=== PATIENT | male | born 1975 | race Caucasian/White ===

== ENCOUNTER 2020-04-04 08:34 | Outpatient (CLI) | payer BC ==
[~2020-04-04] VITALS: Ht 177.8 cm; Wt 87.2 kg
--- NOTE | ~2020-04-04 | HEMODYNAMI ---
PATIENT:RO RASMUSSEN MEDICAL RECORD: [id number] : 77 LOCATION:[facility] ADMISSION DATE: 04/04/20 Generatedon:04/04/202011:25 Patient name: RO RASMUSSEN Patient #: [id number] SSN: : [id number] Date of study: 04/04/2020 Page: Of Hemodynamic Procedure Report Patient Data Patient Demographics Procedure consent was obtained First Name: RO Gender: Male Last Name: GRADY : 1975 Patient #: [id number] Age: 44 year(s) Race: Unknown Additional ID: [id number] Contact details [address]: [address] [place] [address] State: [place] City: [place] Zip code: [address] Past Medical History Performed procedures and imaging results Date Procedure Procedure Results Comments Echocardiography Allergies: No known allergies Admission Admission Data Admission Date: 04/04/2020 Admission Time: 8:34 Arrival Date: 04/04/2020 Arrival Time: 0:00 Height (in.): 70 BSA: 2.05 (m2) Height (cm.): 177.8 BMI: 27.52 (kg/m2) Weight (lbs.): 191.8 Weight (kg.): 87 Lab Results Lab Result Date: 04/04/2020 Lab Result Time: 0:00 Biochemistry Name Units Result Min Max BUN mg/dl 20 --(----)*- 7 18 Creatinine mg/dl 1.5 --(----)-* 0.6 1.3 eGFR ml/min 66 *-(----)-- 90 120 NONAFRICAN CBC Name Units Result Min Max Hematocrit % 45.4 --(-*--)-- 42 54 Hemoglobin g/dl 15.6 --(--*-)-- 13.5 17.5 Procedure Procedure Types Cath Procedure Diagnostic Procedure [facility] w/Coronaries FFR/IVUS FFR Initial Aortic Root Angiography Sedation Charges Moderate Sedation up to 45 minutes PCI Procedure Coronary Stent Coronary Stent Initial Hemochron ACT Test Procedure Description Procedure Date Procedure Date: 04/04/2020 Procedure Start Time: 10:41 Procedure End Time: 11:23 Procedure Staff Name Function Otoniel Green MD Performing Physician Marlena Barbosa RT Monitor Marilynn Garcia RN Nurse Julia De La Cruz RT Scrub Indication Cardiomyopathy Procedure Data Cath Procedure Fluoroscopy Diagnostic fluoroscopy Total fluoroscopy Time: time: 10.6 min 10.6 min Diagnostic fluoroscopy Total fluoroscopy dose: dose: 1285 mGy 1285 mGy Contrast Material Contrast Material Type Amount (ml) Isovue 300 185 Entry Location Entry Primary Successful Side Size Upsize Upsize Entry Closure Succes sful Closure Location (Fr) 1 (Fr) 2 (Fr) Remarks Device Remarks Femoral Right 5 Fr 6 Fr Exoseal artery Short Estimated blood loss: 10 ml Diagnostic catheters Device Type Used For End Catheter Placement MULTIPACK JL 4.0 5Fr Procedure catheter MULTIPACK 3DRC 5Fr Procedure catheter DIAGNOSTIC AR MOD 5Fr Procedure Catheter ([id number]) DIAGNOSTIC AL1 5Fr Procedure catheter ([id number]) MULTIPACK Pigtail 5 Fr Ventriculography catheter MULTIPACK Pigtail 5 Fr Procedure catheter Procedure Complications No complications Procedure Medications Medication Administration Route Dosage 0.9% NaCl I.V. 100 ml/hr Oxygen etCO2 Nasal cannula 2 l/min Lidocaine 2% added to field 20 Heparin Flush Bag added to field 2 bags (1000units/500ml NS) Versed I.V. 2 mg Fentanyl I.V. 50 mcg Versed I.V. 2 mg Fentanyl I.V. 50 mcg Heparin Bolus I.V. 2000 units Heparin Bolus I.V. 6500 units Nitroglycerin IC/IA I.C. 100 mcg Plavix P.O. 600 mg Hemodynamics Rest BSA: 2.05 (m2) HGB: 15.6 (g/dl) O2 Consumption: Estimated: 240.67 (ml/min) O2 Co nsumption indexed: Estimated:117.4 (ml/min/m) Heart Rate: 60 (bpm) Pressure Samples Time Site Value (mmHg) Purpose Heart Use Rate(bpm) 10:55 LV 131/-5,6 Snapshot 61 10:55 LV 123/-5,0 Snapshot 65 Gradients Valve Time Site Site Mean SEP/DFP Peak To Heart Use 1 2 (mmHg) (sec/min) Peak Rate (mmHg) (bpm) Aortic 10:55 LV AO 62 Snapshots Pre Cath Intra NCS Post Cath Vital Signs Time Heart Resp SPO2 etCO2 NIBP (mmHg) Rhythm Pain Sedation Rate (ipm) (%) (mmHg) Status Level (bpm) 10:16:52 60 16 100 32.9 173/102(134) NSR 0 (11) 10(A) , No pain 10:21:14 60 13 99 35.1 167/103(142) NSR 0 (11) 10(A) , No pain 10:25:34 61 12 97 40.4 158/94(115) NSR 0 (11) 10(A) , No pain 10:29:58 59 13 97 39.6 149/88(109) SB 0 (11) 10(A) , No pain 10:34:14 61 12 97 41.9 146/89(118) NSR 0 (11) 10(A) , No pain 10:38:28 58 11 97 41.9 143/91(110) SB 0 (11) 10(A) , No pain 10:43:27 55 11 97 40.4 Measuring SB 0 (11) 10(A) , No pain 10:43:33 54 11 97 41.1 148/87(105) SB 0 (11) 10(A) , No pain 10:47:52 61 11 97 41.9 149/88(121) SB 0 (11) 9(A) , No pain 10:52:14 58 11 96 41.8 144/81(115) SB 0 (11) 9(A) , No pain 10:56:32 61 11 98 41.1 148/87(114) SB 0 (11) 9(A) , No pain 11:01:31 57 11 96 41.1 Measuring SB 0 (11) 9(A) , No pain 11:01:41 58 11 98 41.1 145/80(114) SB 0 (11) 9(A) , No pain 11:05:59 56 13 98 41.1 153/87(113) SB 0 (11) 9(A) , No pain 11:10:19 54 13 99 41.1 139/68(113) SB 0 (11) 9(A) , No pain 11:14:44 58 13 98 41.1 152/70(103) SB 0 (11) 9(A) , No pain 11:19:04 51 13 99 40.4 152/92(109) SB 0 (11) 9(A) , No pain 11:23:24 51 11 97 38.1 145/86(117) SB 0 (11) 10(A) , No pain Medications Time Medication Route Dose Verified Delivered Reason Notes Effectiveness by by 10:21:56 0.9% NaCl I.V. 100 Otoniel Marilynn used for ml/hr Peter Garcia drug purchaser 10:22:03 Oxygen etCO2 2 Otoniel Marilynn used for Nasal l/min Peetr Garcia procedure cannula RN 10:22:08 Lidocaine 2% added 20ml Otoniel Otoniel for local to vial Peter Green MD anesthetic field 10:22:14 Heparin Flush added 2 Otoniel Otoniel used for Bag to bags Peter Green MD procedure (1000units/500ml field NS) 10:38:20 Versed I.V. 2 mg Otoniel Marilynn for sedation Peter Garcia RN 10:38:29 Fentanyl I.V. 50 Otoniel Marilynn for sedation mcg Peter Garcia RN 10:43:06 Versed I.V. 2 mg Otoniel Marilynn for sedation Peter Garcia RN 10:43:15 Fentanyl I.V. 50 Otoniel Marilynn for sedation mcg Peter Garcia RN 10:58:07 Heparin Bolus I.V. 2000 Otoniel Marilynn for verif ied units Peter Garcia anticoagulation with Dr. WU Green 11:11:52 Heparin Bolus I.V. 6500 Otoniel Marilynn for units Peter Garcia anticoagulation RN 11:18:48 Nitroglycerin I.C. 100 Otoniel Otoniel for IC/IA mcg Peter Green MD vasodilation 11:21:41 Plavix P.O. 600 Otoniel Marilynn for mg Peter Garcia antiplatelet RN therapy Procedure Log Time Note 10:05:57 Indication : Cardiomyopathy 10:06:05 Marilynn Garcia RN sent for patient. Start room use. 10:06:08 Time tracking: Regular hours (M-F 7:00 - 5:00) 10:06:13 Procedure Status Elective Heart Cath (OP). 10:06:22 Plan of Care:Hemodynamics will remain stable., Cardiac rhythm will remain stable., Comfort level will be maintained., Respiratory function will remain adequate., Patient/ family verbilizes understanding of procedure., Procedure tolerated without complication., Recovers from procedure without complications.. 10:10:12 Patient received from Pre/Post Procedure Room to CCL 1 Alert and oriented. Tansferred to table in Supine position. 10:10:14 Signed procedure consent form obtained from patient. 10:10:15 Warm blankets applied, and gayle hugger turned on for patient comfort. 10:10:16 Correct patient and procedure confirmed by team. 10:10:25 H&P Date Dictated: 04/04/2020 New H&P dictated by physician.. 10:10:27 Family in patients room. 10:10:28 Patient NPO since Midnight. 10:11:17 Lab Result : Creatinine 1.5 mg/dl 10:11:17 Lab Result : BUN 20 mg/dl 10:11:17 Lab Result : Hemoglobin 15.6 g/dl 10:11:17 Lab Result : eGFR NONAFRICAN 66 ml/min 10:11:17 Lab Result : Hematocrit 45.4 % 10:15:29 ECG and BP/O2 sat monitors applied to patient. 10:15:30 Vital chart was started 10:15:32 Baseline sample Acquired. 10:15:37 Rhythm: sinus bradycardia 10:15:39 Full Disclosure recording started 10:15:45 Pre-procedure instructions explained to patient. 10:15:46 Pre-op teaching completed and patient verbalized understanding. 10:15:51 Patient allergic to No known allergies 10:15:55 Is patient on blood thinner?No 10:15:59 Patient diabetic? No. 10:16:02 Previous problem with sedation/anesthesia? No ? 10:16:03 Snore? Yes 10:16:04 Sleep apnea? No 10:16:05 Deviated septum? No 10:16:06 Opens mouth fully? Yes 10:16:07 Sticks out tongue? Yes 10:16:09 Airway obstruction? No ? 10:16:10 Dentures? No ? 10:16:15 Pre procedure: right dorsailis pedis pulse 1+ Palpable, but thready & weak; easily obliterated 10:16:19 Modified Sandro's test Ulnar > 7 seconds. 10:16:21 Patient pain scale 0/10 ?. 10:16:29 IV patent on arrival in left hand with 0.9% NaCl at [facility]. 10:16:34 Lab results completed and on chart. 10:16:49 Stress Test: no; N/A ECHO-CARDIOMYOPATHY 10:17:00 Right groin area was prepped with chlora-prep and draped in sterile fashion 10:17:01 Alarms reviewed by R. N. 10:17:01 Sharps counted by scrub and verified by R.N. 10:17:10 Use device set Femoral Dx 10:17:11 ACIST Syringe (21787) opened to sterile field. 10:17:11 Bag Decanter (2002S) opened to sterile field. 10:17:12 ACIST Hand Control (00269) opened to sterile field. 10:17:12 ACIST Manifold (78375) opened to sterile field. 10:17:13 Tegaderm 4 x 4 (1626W) opened to sterile field. 10:17:14 Medline Cath Pack ([id number]) opened to sterile field. 10:17:16 DIAGNOSTIC Multipack 5Fr catheter set (EP4367) opened to sterile field. 10:17:17 SHEATH 5FR Newberry (DDZ860) opened to sterile field. 10:17:18 EMERALD Guide Wire (306-388) opened to sterile field. 10:21:56 0.9% NaCl 100 ml/hr I.V. was administered by Marilynn Garcia RN; used for procedure; Verbal order read back and verified. 10:22:03 Oxygen 2 l/min etCO2 Nasal cannula was administered by Marilynn Garcia RN; used for procedure; Verbal order read back and verified. 10:22:08 Lidocaine 2% 20ml vial added to field was administered by Otoniel Green MD; for local anesthetic; Verbal order read back and verified. 10:22:14 Heparin Flush Bag (1000units/500ml NS) 2 bags added to field was administered by Otoniel Green MD; used for procedure; Verbal order read back and verified. 10:36:45 Patient Weight : 191.8 lbs 10:36:48 Patient Height : 70 inches 10:36:52 Arrival Date: 04/04/2020 12:00:00 AM 10:37:20 --------ALL STOP TIME OUT------ 10:37:21 Final Timeout: patient, procedure, and site verified with staff and physician. All members of the team are in agreement. 10:37:23 Right groin site verified by team. 10:37:26 Fire Safety Assessment: A--An alcohol-based skin anteseptic being used preoperatively., C--Open oxygen or nitrous oxide is being used., D--An ESU, laser, or fiber-optic light is being used. 10:37:34 Physical assessment completed. ASA score P 3 - A patient with severe systemic disease as per Otoniel Green MD. 10:37:37 2) 60-89 Mildly reduced kidney function, and other findings (as for stage 1) point to kidney disease. 10:37:40 Maximum allowable contrast dose (3.7 X eGFR X 0.75)183 ml. 10:37:43 Sedation plan: IV Moderate Sedation Medication:Versed, Fentanyl 10:38:20 Versed 2 mg I.V. was administered by Marilynn Garcia RN; for sedation; Verbal order read back and verified. 10:38:29 Fentanyl 50 mcg I.V. was administered by Marilynn Garcia RN; for sedation; Verbal order read back and verified. 10:41:16 Procedure started. 10:41:26 Local anesthetic to right femoral artery with Lidocaine 2% by Otoniel Green MD.INITIAL ACCESS ONLY 10:41:37 A 5 Fr sheath was inserted into the Right Femoral artery 10:42:28 A MULTIPACK JL 4.0 5Fr catheter was advanced over the wire and used for Procedure. 10:43:06 Versed 2 mg I.V. was administered by Marilynn Garcia RN; for sedation; Verbal order read back and verified. 10:43:06 LCA angiography performed. 10:43:15 Fentanyl 50 mcg I.V. was administered by Marilynn Garcia RN; for sedation; Verbal order read back and verified. 10:44:48 Catheter removed. 10:45:38 GUIDE 6FR XBLAD 3.5 catheter ([id number]) opened to sterile field. 10:45:39 SHEATH 6FR Newberry (KDH745) opened to sterile field. 10:45:39 INFLATOR Merit BasixCompak (SK0984) opened to sterile field. 10:45:40 TUBING High Pressure Extension Tubing (Peter) ([id number]) opened to sterile field. 10:45:41 Sidman [place] IVUS Catheter (46361Y) opened to sterile field. 10:45:51 A MULTIPACK 3DRC 5Fr catheter was advanced over the wire and used for Procedure. 10:46:55 RCA angiography performed. 10:47:46 Catheter removed. 10:47:59 A DIAGNOSTIC AR MOD 5Fr Catheter (461439X) was advanced over the wire and used for Procedure. 10:48:04 RCA angiography performed. 10:52:04 A DIAGNOSTIC AL1 5Fr catheter (181411L) was advanced over the wire and used for Procedure. 10:52:52 RCA angiography performed. 10:54:58 A MULTIPACK Pigtail 5 Fr catheter was advanced over the wire and used for Ventriculography. 10:55:32 EF : 40 % 10:55:54 Catheter removed. 10:56:48 Sheath upsized to a 6 Fr Short. 10:56:52 Proceeding to intervention. 10:58:07 Heparin Bolus 2000 units I.V. was administered by Marilynn Garcia RN; for anticoagulation; verified with Dr. Green Verbal order read back and verified. 11:01:32 6 Fr XBLAD3.5 guide catheter was inserted over the wire 11:02:31 Guide catheter removed. 11:02:42 A MULTIPACK Pigtail 5 Fr catheter was advanced over the wire and used for Procedure. 11:02:50 Aortic Root visualized 11:04:42 Catheter removed. 11:04:44 Proceeding to intervention. 11:05:12 6 Fr xblad guide catheter was inserted over the wire 11:10:37 ifr wire advanced. 11:10:43 Wire advanced across lesion. 11:10:52 mLAD lesion measured at .86 with IFR 11:11:52 Heparin Bolus 6500 units I.V. was administered by Marilynn Garcia RN; for anticoagulation; Verbal order read back and verified. 11:17:21 Place stent Inflation Number: 1 A MATILDA RX 2.5 x 26 stent ([id number]) was prepped and advanced across the Mid LAD 80. The stent was deployed at 12 HERBERT for 0:10 (min:sec) 0. 11:17:58 EXOSEAL 6Fr (EX600) opened to sterile field. 11:18:48 Nitroglycerin IC/IA 100 mcg I.C. was administered by Otoniel Green MD; for vasodilation; Verbal order read back and verified. 11:20:02 Procedure type changed to Cath procedure, Diagnostic procedure, [facility], [facility] w/Coronaries, FFR/IVUS, FFR Initial, Aortic Root Angiography, Sedation Charges, Moderate Sedation up to 45 minutes, PCI procedure, Coronary Stent, Coronary Stent Initial, Hemochron ACT Test 11:20:25 Sheath removed intact; hemostasis achieved with Exoseal to the Right Femoral artery. 11:20:27 Procedure ended.(Physican Out) 11:20:38 Fluoroscopy time 10.60 minutes. 11:20:43 Fluoroscopy dose: 1285 mGy 11:20:43 Flurop Dose total: 1285 11:20:48 Dose Area Product 91167 mGy/cm. 11:20:56 Contrast amount:Isovue 300 185ml. 11:20:58 Maximum allowable dose exceeded? Yes. 11:21:01 Insertion/operative site no bleeding no hematoma. 11:21:05 Post right femoral artery:stable 11:21:07 Post Procedure Pulses reassessed and unchanged 11:21:11 Post-procedure physical assessment completed. ASA score P 3 - A patient with severe systemic disease as per Otoniel Green MD. 11:21:13 Post procedure rhythm: unchanged. 11:21:16 Estimated blood loss: 10 ml 11:21:19 Post procedure instruction explained to patient.Patient verbalizes understanding. 11:21:24 Procedure and supply charges have been captured, reviewed, submitted and are correct. 11:21:41 Plavix 600 mg P.O. was administered by Marilynn Garcia RN; for antiplatelet therapy; Verbal order read back and verified. 11::45 Procedure Complication : No complications 11:22:45 Vital chart was stopped 11:22:54 [facility] Findings: MVD- PCI performed (see procedure note) 11:22:57 Operative report dictated upon procedure completion. 11:22:57 See physician's report for complete and final results. 11:22:59 Report given to Pre/Post Procedure Room. 11:23:02 Patient transfered to Pre/Post Procedure Room with Stretcher. 11:23:05 Procedure ended. 11:23:05 Full Disclosure recording stopped 11:23:09 End room use (Document Last) 11:23:35 End room use (Document Last) 11:24:45 ACT drawn and resulted at >400-out of range seconds. (normal therapeutic range 180-240 seconds). Intervention Summary Intervention Notes Time ActionType Lesion and Equipment Used Action# Pressure Duration Attributes 11:17:21 Place stent Mid LAD MATILDA RX 2.5 x 1 12 00:10 26 stent ([id number]) Device Usage Item Name Manufacture Quantity Catalog Hospital Part [facility] Lot# / Number Charge Number Stock Stock Serial# Code ACIST Syringe Acist 1 70408 938226 183344 532438 20 (82911) Medical Systems Inc Bag Decanter Microtek 1 2001S 044200 81028 210738 5 (2001S) Medical Inc. ACIST Hand Acist 1 54884 555290 513715 517367 5 Control Medical (45081) Systems Inc ACIST Manifold Acist 1 89710 634031 312667 580980 5 (27197) Medical Systems Inc Tegaderm 4 x 4 3M 1 1626W 817460 455702 688404 5 (1626W) Medline Cath Medline 1 [id number] 996669 70994 430370 5 Pack ([id number]) DIAGNOSTIC Cardinal 1 XI4524 931501 65057 329157 30 Multipack 5Fr Health catheter set (ZA1103) SHEATH 5FR Terumo 1 UYP422 946393 502899 420769 5 Newberry (TIR709) EMERALD Guide Cardinal 1 502-455 995025 320835 469362 5 Wire (502-455) Health MULTIPACK JL Cardinal 1 964319 5 4.0 5Fr Health catheter GUIDE 6FR Cardinal 1 [id number] 498407 313619 807837 10 XBLAD 3.5 Health catheter (36937205) SHEATH 6FR Terumo 1 FEW698 818018 043312 786848 40 Newberry (CPR364) INFLATOR Merit Merit 1 UY3928 708619 644814 938692 15 BasixCompak Medical (QP7191) TUBING High Merit 1 [id number] 099714 21773 966193 10 Pressure Medical Extension Tubing (Green) ([id number]) Sidman Sidman 1 31676R 225485 614870 905875 8 [place]ag[place] IVUS Catheter (92478E) MULTIPACK 3DRC Cardinal 1 284852 5 5Fr catheter Health DIAGNOSTIC AR Cardinal 1 [id number] 314814 025450 592955 15 MOD 5Fr Health Catheter (779127A) DIAGNOSTIC AL1 Cardinal 1 [id number] 181904 704202 168934 15 5Fr catheter Health (508210J) MULTIPACK Cardinal 1 764091 5 Pigtail 5 Fr Health catheter MATILDA RX 2.5 x Medtronic 1 [id number] 881012 5522706 134672 5 [id number] 26 stent ([id number]) EXOSEAL 6Fr Cardinal 1 EX600 704509 947545 681629 10 (EX600) Health Signature Audit Slater Stage Time Signature Unsigned Intra-Procedure 04/04/2020 Marlena Barbosa 11:23:35 AM RT(R) Intra-Procedure 04/04/2020 Marilynn Garcia 11:23:54 AM RN Intra-Procedure 04/04/2020 Otoniel Green MD 11:25:42 AM [facility] [address] [place] [address]
[2020-04-04] MEDS ORDERED: COREG6.25 MG PO (09:14)
[2020-04-04] MEDS ORDERED: LISINOPRIL10 MG PO (09:14)
[2020-04-04] MEDS ORDERED: OMEPRAZOLE20 M1 PO (09:15)
[2020-04-04] MEDS ORDERED: ZOLOFT50 MG PO (09:15)
[2020-04-04 09:31] VITALS: BP 154/94; Ht 177.8 cm; Wt 87.2 kg
[2020-04-04 09:46] LABS: BASOPHILS 0.7 % (0-2); EOSINOPHILS 3.4 % (0-7); HEMATOCRIT 45.4 % (42.0-54.0); HEMOGLOBIN 15.6 g/dL (13.5-17.5); IMMATURE GRANULOCYTES 0.2 % (0-5); MCH 32.4 pg (26.0-34.0); MCHC 34.4 g/dL (31.0-37.0); MCV 94.2 fL (80.0-100.0); MEAN PLATELET VOLUME 9.7 fL (7.4-10.4); MONOCYTES 5.6 % (2-11); NEUTROPHILS 69.1 % (40-80); PLATELET COUNT 261 10x3/uL (130-400); RBC 4.82 10x6/uL (4.20-6.10); RDW 13.4 % (11.5-14.5); WBC 4.4 10x3/uL (4.8-10.8)
[2020-04-04 10:05] LABS: ANION GAP 12.8 mmol/L (8-16); CALCIUM 9.3 mg/dL (8.5-10.1); CARBON DIOXIDE 27.7 mmol/L (21.0-32.0); CHOL - HDL RATIO 4.1 ratio (2.3-4.9); CREATININE - SERUM 1.5 mg/dL (0.6-1.3); LDL-HDL RATIO 2.7 ratio (1.5-3.5); POTASSIUM - SERUM 4.5 mmol/L (3.5-5.1)
--- NOTE | 2020-04-04 11:40 | NUR ---
PT REC'D TO ROOM 4 VIA STRETCHER FROM RAP ARTIST. MONITORS ESTAB. PT DROWSY. SEE HEEL COVER SPLITTER. ALARMS ON AND C/L IN REACH.
[2020-04-04] MEDS ORDERED: PLAVIX75 MG PO (11:45)
[2020-04-04] MEDS ORDERED: BAYER CHEWABLE81 MG PO (11:45)
--- NOTE | 2020-04-04 11:55 | NUR ---
R GROIN SITE SOFT, NO S/S BLEEDING OR HEMATOMA. PEDAL PULSES STRONG PALP. VSS. GIRLFRIEND AT BS. PT RESTING QUIETLY, NO S/S DISTRESS. ALARMS ON AND C/L IN REACH.
--- NOTE | 2020-04-04 12:25 | NUR ---
R GROIN SITE SOFT, C/D/I, NO S/S BLEEDING OR HEMATOMA. VSS. PT DENIES PAIN OR NEEDS.
--- NOTE | 2020-04-04 12:40 | NUR ---
R GROIN SITE C/D/I, NO S/S BLEEDING OR HEMATOMA. PULSES PALP.
--- NOTE | 2020-04-04 13:10 | NUR ---
PT VOIDED 350ML CLEAR, YELLOW URINE. R GROIN SITE SOFT, C/D/I. VSS. ALARMS ON AND C/L IN REACH.
--- NOTE | 2020-04-04 13:40 | NUR ---
R GROIN SITE SOFT, NO S/S BLEEDING OR HEMATOMA. PULSES PALP. PT RESTING QUIETLY. VSS.
--- NOTE | 2020-04-04 14:20 | NUR ---
GROIN SITE C/D/I. HOB ELEVATED AND SANDWICH TRAY PROVIDED. ALARMS ON AND C/L IN REACH.
--- NOTE | 2020-04-04 14:29 | NUR ---
PT C/O INCISIONAL PAIN RATED 05/09 - DR. FRAGOSO NOTIFIED AND NEW ORDER REC'D.
--- NOTE | 2020-04-04 14:41 | NUR ---
ADMIN NORCO PER MD ORDER, SEE EMAR. VSS. R GROIN SITE SOFT, TENDER, NO BLEEDING OR SWELLING, PEDAL PULSES PALP. C/L IN REACH.
--- NOTE | 2020-04-04 15:07 | NUR ---
PT REPORTS "FEELS BETTER", RATES SORENESS AT 310. R GROIN SITE SOFT, C/D/I. PEDAL PULSES PALP.
--- NOTE | 2020-04-04 15:15 | NUR ---
R GROIN SITE SOFT, C/D/I. PULSES PALP. PIV D/C'D INTACT, DSG APPLIED. PT UP TO GET DRESSED AND GO TO BR.
--- NOTE | 2020-04-04 15:20 | NUR ---
ALL D/C INSTRUCTIONS REVIEWED WITH PT, INCLUDING RESTRICTIONS, NEW MEDICATION AND INSTRUCTION TO RETURN FOR PROCEDURE APRIL 15.
--- NOTE | 2020-04-04 15:30 | NUR ---
PT D/C'D VIA WC TO PRIVATE VEHICLE WITH ALL PAPER WORK, PRESCRIPTION, AND BELONGINGS.
== END 2020-04-04 15:30 | disposition home or self-care (01) ==
LOC: D.CATH 08:34
PROVIDERS: ATTEND Internal Medicine Cardiovascular Disease
DX: I25.119 Atherosclerotic heart disease of native coronary artery with unspecified angina pectoris (principal); I42.9 Cardiomyopathy, unspecified; R42 Dizziness and giddiness; R53.83 Other fatigue; R00.2 Palpitations

== ENCOUNTER 2020-04-15 07:03 | Outpatient (CLI) | payer BC ==
[~2020-04-15] VITALS: Ht 177.8 cm; Wt 83.8 kg
--- NOTE | ~2020-04-15 | HEMODYNAMI ---
PATIENT:RO RASMUSSEN MEDICAL RECORD: [id number] : 77 LOCATION:[facility] ADMISSION DATE: 04/15/20 Generatedon:04/15/20209:49 Patient name: RO RASMUSSEN Patient #: [id number] SSN: [id number] : 1975 Date of study: 04/15/2020 Page: Of Hemodynamic Procedure Report Patient Data Patient Demographics Procedure consent was obtained First Name: RO Gender: Male Last Name: GRADY : 1975 Patient #: [id number] Age: 44 year(s) Race: Unknown SSN: [id number] Additional ID: [id number] Contact details Address: [address] [place] [address] State: [place] City: [place] Zip code: [address] Past Medical History Allergies: No known allergies Admission Admission Data Admission Date: 04/15/2020 Admission Time: 7:03 Arrival Date: 04/15/2020 Arrival Time: 0:00 Admit Source: Other Insurance Payor: Private health insurance [facility] #: [id number] Height (in.): 69.69 BSA: 2 (m2) Height (cm.): 177 BMI: 26.49 (kg/m2) Weight (lbs.): 182.98 Weight (kg.): 83 Lab Results Lab Result Date: 04/15/2020 Lab Result Time: 0:00 Biochemistry Name Units Result Min Max BUN mg/dl 25 --(----)-* 7 18 Creatinine mg/dl 1.4 --(----)*- 0.6 1.3 Procedure Procedure Types Cath Procedure Diagnostic Procedure Sedation Charges Moderate Sedation up to 15 minutes PCI Procedure Coronary Stent Coronary Stent Initial Hemochron ACT Test Procedure Description Procedure Date Procedure Date: 04/15/2020 Procedure Start Time: 9:32 Procedure End Time: 9:48 Procedure Staff Name Function Otoniel Green MD Performing Physician Marlena Barbosa RT Monitor Marilynn Garcia RN Nurse Julia De La Cruz RT Scrub Indication Abnormal nuclear perfusion test Procedure Data Cath Procedure Fluoroscopy Diagnostic fluoroscopy Total fluoroscopy Time: 3.6 time: 3.6 min min Diagnostic fluoroscopy Total fluoroscopy dose: 258 dose: 258 mGy mGy Contrast Material Contrast Material Type Amount (ml) Isovue 300 51 Entry Location Entry Primary Successful Side Size Upsize Upsize Entry Closure Succes sful Closure Location (Fr) 1 (Fr) 2 (Fr) Remarks Device Remarks Femoral Left 6 Fr Exoseal artery Short Estimated blood loss: 10 ml Procedure Complications No complications Procedure Medications Medication Administration Route Dosage 0.9% NaCl I.V. 100 ml/hr Oxygen etCO2 Nasal cannula 2 l/min Lidocaine 2% added to field 20 Heparin Flush Bag added to field 2 bags (1000units/500ml NS) Versed I.V. 2 mg Fentanyl I.V. 50 mcg Fentanyl I.V. 50 mcg Nitroglycerin IC/IA I.C. 50 mcg Heparin Bolus I.V. 8000 units Hemodynamics Rest BSA: 2 (m2) O2 Consumption: Estimated: 231.97 (ml/min) O2 Consumption indexed: E stimated:115.98 (ml/min/m) Heart Rate: 56 (bpm) Snapshots Pre Cath Intra NCS Post Cath Vital Signs Time Heart Resp SPO2 etCO2 NIBP (mmHg) Rhythm Pain Sedation Rate (ipm) (%) (mmHg) Status Level (bpm) 9:12:12 66 14 97 32.4 143/89(107) NSR 0 (11) 10(A) , No pain 9:16:28 63 10 96 36.9 126/75(99) NSR 0 (11) 10(A) , No pain 9:20:41 60 10 97 38.5 114/68(94) NSR 0 (11) 10(A) , No pain 9:24:57 58 14 96 37.7 110/66(94) SB 0 (11) 10(A) , No pain 9:29:13 58 14 97 40 111/60(87) SB 0 (11) 10(A) , No pain 9:33:24 60 17 96 39.2 111/67(91) SB 0 (11) 10(A) , No pain 9:37:38 65 15 97 40 98/57(73) SB 0 (11) 10(A) , No pain 9:41:50 65 16 96 43 106/61(85) SB 0 (11) 10(A) , No pain 9:46:04 66 7 96 43 102/66(84) SB 0 (11) 10(A) , No pain Medications Time Medication Route Dose Verified Delivered Reason Notes Effectiveness by by 9:11:17 0.9% NaCl I.V. 100 Otoniel Marilynn used for ml/hr Peter Garcia lobby porter 9:11:24 Oxygen etCO2 2 Otoniel Marilynn used for Nasal l/min Peter Garcia procedure cannula RN 9:11:29 Lidocaine 2% added 20ml Otoniel Otoniel for local to vial Peter Green MD anesthetic field 9:11:33 Heparin Flush added 2 Otoniel Otoniel used for Bag to bags Peter Green MD procedure (1000units/500ml field NS) 9:30:58 Versed I.V. 2 mg Otoniel Marilynn for sedation Peter Garcia RN 9:31:08 Fentanyl I.V. 50 Otoniel Marilynn for sedation mcg Peter Garcia RN 9:35:17 Fentanyl I.V. 50 Otoniel Marilynn for sedation mcg Peter Garcia RN 9:35:29 Nitroglycerin I.C. 50 Otoniel Marilynn for IC/IA mcg Peter brush RN 9:36:50 Heparin Bolus I.V. 8000 Otoniel Marilynn for verifi ed units Peter Garcia anticoagulation with Dr. WU Green Procedure Log Time Note 9:07:59 Arrival Date: 04/15/2020 12:00:00 AM 9:08:14 Admit Source: Other 9:08:19 Insurance Payor : Private health insurance 9:08:27 Patient Height : 69.69 inches 9:08:32 Patient Weight : 182.98 lbs 9:08:51 Lab Result : Creatinine 1.4 mg/dl 9:08:51 Lab Result : BUN 25 mg/dl 9:08:57 Procedure type changed to Cath procedure, Diagnostic procedure, Sedation Charges, Moderate Sedation up to 15 minutes, PCI procedure, Coronary Stent, Coronary Stent Initial, Hemochron ACT Test 9:09:04 PCI Cath Status : Elective 9:09:05 Diagnostic Cath Status : Elective 9:09:35 Indication : Abnormal nuclear perfusion test 9:09:58 Procedure Status Elective Heart Cath (OP). 9:10:43 Marilynn Garcia RN sent for patient. Start room use. 9:10:50 Time tracking: Regular hours (M-F 7:00 - 5:00) 9:10:55 Plan of Care:Hemodynamics will remain stable., Cardiac rhythm will remain stable., Comfort level will be maintained., Respiratory function will remain adequate., Patient/ family verbilizes understanding of procedure., Procedure tolerated without complication., Recovers from procedure without complications.. 9:11:00 Patient received from Pre/Post Procedure Room to CCL 1 Alert and oriented. Tansferred to table in Supine position. 9:11:04 Signed procedure consent form obtained from patient. 9:11:05 Warm blankets applied, and gayle hugger turned on for patient comfort. 9:11:06 Correct patient and procedure confirmed by team. 9:11:07 ECG and BP/O2 sat monitors applied to patient. 9:11:07 Vital chart was started 9:11:11 Baseline sample Acquired. 9:11:15 Rhythm: sinus rhythm 9:11:17 0.9% NaCl 100 ml/hr I.V. was administered by Marilynn Garcia RN; used for procedure; Verbal order read back and verified. 9:11:17 Full Disclosure recording started 9:11:24 Oxygen 2 l/min etCO2 Nasal cannula was administered by Marilynn Garcia RN; used for procedure; Verbal order read back and verified. 9:11:29 Lidocaine 2% 20ml vial added to field was administered by Otoniel Green MD; for local anesthetic; Verbal order read back and verified. 9:11:29 H&P Date Dictated: 04/04/2020 Within 30 days and on chart., H&P Addendum completed by physician on day of procedure. (MUST COMPLETE FOR ALL OUTPATIENTS). 9:11:32 Pre-procedure instructions explained to patient. 9:11:33 Heparin Flush Bag (1000units/500ml NS) 2 bags added to field was administered by Otoniel Green MD; used for procedure; Verbal order read back and verified. 9:11:34 Family in patients room. 9:11:37 Patient NPO since Midnight. 9:11:41 Patient NPO since Midnight. 9:11:48 Patient allergic to No known allergies 9:11:51 Is the patient allergic to Iodine/contrast media? No. 9:11:52 Was the patient premedicated? Yes 9:11:53 Is patient on blood thinner?Yes 9:11:56 ACC The patient was administered the following blood thiners within the last 24 hours: ACCPlavix 9:12:00 Patient diabetic? No. 9:12:07 Snore? No 9:12:09 Sleep apnea? No 9:12:16 Patient pain scale 0/10 ?. 9:12:22 IV patent on arrival in left forearm with 0.9% NaCl at [facility]. 9:12:25 Lab results completed and on chart. 9:18:16 Left groin area was prepped with chlora-prep and draped in sterile fashion 9:18:18 Alarms reviewed by RTramaine N. 9:18:18 Sharps counted by scrub and verified by R.N. 9:18:20 Physician paged 9:30:20 Physician arrived 9:30:20 --------ALL STOP TIME OUT------ 9:30:21 Final Timeout: patient, procedure, and site verified with staff and physician. All members of the team are in agreement. 9:30:23 Left groin site verified by team. 9:30:28 Fire Safety Assessment: A--An alcohol-based skin anteseptic being used preoperatively., C--Open oxygen or nitrous oxide is being used., D--An ESU, laser, or fiber-optic light is being used. 9:30:32 Physical assessment completed. ASA score P 3 - A patient with severe systemic disease as per Otoniel Green MD. 9:30:36 3a) 45-59 Moderately reduced kidney function. 9:30:41 Maximum allowable contrast dose (3.7 X eGFR X 0.75)165 ml. 9:30:46 Sedation plan: IV Moderate Sedation Medication:Versed, Fentanyl 9:30:52 Procedure started. 9:30:58 Versed 2 mg I.V. was administered by Marilynn Garcia RN; for sedation; Verbal order read back and verified. 9:31:08 Fentanyl 50 mcg I.V. was administered by Marilynn Garcia RN; for sedation; Verbal order read back and verified. 9:31:26 Use device set Femoral Dx 9:31:39 Use device set PETER PCI 9:31:44 ACIST Syringe (22881) opened to sterile field. 9:31:45 Bag Decanter (2002S) opened to sterile field. 9:31:46 Medline Cath Pack ([id number]) opened to sterile field. 9:31:49 Tegaderm 4 x 4 (1626W) opened to sterile field. 9:31:53 EMERALD Guide Wire (502-797) opened to sterile field. 9:31:55 TUBING High Pressure Extension Tubing (Peter) ([id number]) opened to sterile field. 9:31:57 INFLATOR Merit BasixCompak (PV8228) opened to sterile field. 9:32:00 BMW 300cm Hel[place] 2 J wire ([id number]) opened to sterile field. 9:32:12 SHEATH 6FR Cisco (FQG088) opened to sterile field. 9:32:28 GUIDE 6FR AL 1.0 catheter (OO2ZB74) opened to sterile field. 9:32:37 Local anesthetic to left femerol artery with Lidocaine 2% by Otoniel Green MD.INITIAL ACCESS ONLY 9:32:46 A 6 Fr Short sheath was inserted into the Left Femoral artery 9:33:16 6 Fr AL1 guide catheter was inserted over the wire 9:35:17 Fentanyl 50 mcg I.V. was administered by Marilynn Garcia RN; for sedation; Verbal order read back and verified. 9:35:23 bmw wire advanced. 9:35:29 Nitroglycerin IC/IA 50 mcg I.C. was administered by Marilynn Garcia RN; for vasodilation; Verbal order read back and verified. 9:36:50 Heparin Bolus 8000 units I.V. was administered by Marilynn Garcia RN; for anticoagulation; verified with Dr. Green Verbal order read back and verified. 9:42:29 Place stent Inflation Number: 1 A MATILDA RX 3.0 x 15 stent ([id number]) was prepped and advanced across the Prox RCA 80. The stent was deployed at 12 HERBERT for 0:22 (min:sec) 0. 9:43:07 EXOSEAL 6Fr (EX600) opened to sterile field. 9:44:33 Wire removed. 9:44:34 Guide catheter removed. 9:44:54 Sheath removed intact; hemostasis achieved with Exoseal to the Left Femoral artery. 9:44:57 Procedure ended.(Physican Out) 9:45:11 Fluoroscopy time 03.60 minutes. 9:45:15 Fluoroscopy dose: 258 mGy 9:45:15 Flurop Dose total: 258 9:45:21 Dose Area Product 59799 mGy/cm. 9:45:26 Contrast amount:Isovue 300 51ml. 9:46:05 ACT drawn and resulted at >400 seconds. (normal therapeutic range 180-240 seconds). 9:46:12 Insertion/operative site no bleeding no hematoma. 9:46:19 Post-op/insertion site Left Femoral artery dressed using a 4 x 4 and Tegaderm. 9:46:21 Post Procedure Pulses reassessed and unchanged 9:46:28 Post-procedure physical assessment completed. ASA score P 3 - A patient with severe systemic disease as per Otoniel Green MD. 9:46:36 Post procedure rhythm: sinus rhythm 9:46:39 Estimated blood loss: 10 ml 9:46:41 Post procedure instruction explained to patient.Patient verbalizes understanding. 9:47:00 Procedure and supply charges have been captured, reviewed, submitted and are correct. 9:47:37 Procedure Complication : No complications 9:47:49 Vital chart was stopped 9:47:53 [facility] Findings: MVD- PCI performed (see procedure note) 9:47:59 See physician's report for complete and final results. 9:48:01 Report given to Pre/Post Procedure Room. 9:48:04 Patient transfered to Pre/Post Procedure Room with Stretcher. 9:48:06 Procedure ended. 9:48:06 Full Disclosure recording stopped 9:48:17 End room use (Document Last) 9:48:33 End room use (Document Last) 9:48:56 End room use (Document Last) Intervention Summary Intervention Notes Time ActionType Lesion and Equipment Used Action# Pressure Duration Attributes 9:42:[address] stent Prox RCA MATILDA RX 3.0 x 1 12 00:22 15 stent ([id number]) Device Usage Item Name Manufacture Quantity Catalog [facility] Lot# / Number Charge Number Stock Stock Serial# Code ACIST Syringe Acist 1 46934 535853 [id number] 20 (42737) Medical [employer] Bag Decanter Microtek 1 [id number] 74078 872311 5 () Medical Inc. Medline Cath Medline 1 [id number] 123533 12901 770590 5 Pack ([id number]) Tegaderm 4 x 4 3M 1 1626W 120803 544401 [id number] 5 (1626W) EMERALD Guide Cardinal 1 502-455 756439 664088 846477 5 Wire (502-455) Health TUBING High Merit 1 [id number] 968047 96200 011597 10 Pressure Medical Extension Tubing (Green) ([id number]) INFLATOR Merit Merit 1 [id number] 090315 762016 787449 15 BasixCompak Medical (DM2343) BMW 300cm Powell 1 [id number] 065401 428399 840566 5 Helena 2 J Vascular wire ([id number]) SHEATH 6FR Terumo 1 JTL557 351985 300118 572034 40 Cisco (NKI398) GUIDE 6FR AL Medtronic 1 [id number] 611626 67638 048814 1 1.0 catheter (VH2LP86) MATILDA RX 3.0 x Medtronic 1 [id number] 269944 2481984 617894 5 [id number] 15 stent ([id number]) EXOSEAL 6Fr Cardinal 1 EX600 974485 096693 341687 10 (EX600) Health Signature Audit Glynn Stage Time Signature Unsigned Intra-Procedure 04/15/2020 Marlena Barbosa 9:48:33 AM RT(R) Intra-Procedure 04/15/2020 Marilynn Garcia 9:48:56 AM RN Intra-Procedure 04/15/2020 Otoniel Green MD 9:49:22 AM [facility] [address] [place] [address]
[~2020-04-15 07:03] MED LIST: BAYER CHEWABLE81 MG PO; COREG6.25 MG PO; LISINOPRIL10 MG PO; OMEPRAZOLE20 M1 PO; PLAVIX75 MG PO; ZOLOFT50 MG PO
[2020-04-15 08:02] VITALS: BP 131/89; Ht 177.8 cm; Wt 83.8 kg
[2020-04-15 08:41] LABS: ANION GAP 11.8 mmol/L (8-16); CALCIUM 9.5 mg/dL (8.5-10.1); CARBON DIOXIDE 29.6 mmol/L (21.0-32.0); CREATININE - SERUM 1.4 mg/dL (0.6-1.3); POTASSIUM - SERUM 4.4 mmol/L (3.5-5.1)
[2020-04-15 09:13] LABS: BASOPHILS 0.6 % (0-2); EOSINOPHILS 3.1 % (0-7); HEMATOCRIT 47.2 % (42.0-54.0); HEMOGLOBIN 16.2 g/dL (13.5-17.5); IMMATURE GRANULOCYTES 0.2 % (0-5); LYMPHOCYTES 17.7 % (15-50); MCH 32.7 pg (26.0-34.0); MCHC 34.3 g/dL (31.0-37.0); MCV 95.2 fL (80.0-100.0); MEAN PLATELET VOLUME 9.8 fL (7.4-10.4); NEUTROPHILS 69.4 % (40-80); RBC 4.96 10x6/uL (4.20-6.10); RDW 13.2 % (11.5-14.5); WBC 5.1 10x3/uL (4.8-10.8)
[2020-04-15 09:17] LABS: PLATELET COUNT 335 10x3/uL (130-400)
--- NOTE | 2020-04-15 09:57 | NUR ---
PT ARRIVED BY STRETCHER. PLACED ON MONITORS. ASSESSMENT COMPLETED. VSS AT THIS TIME. CALL LIGHT WITHIN REACH. SIGNIFICANT OTHER AT BEDSIDE.
--- NOTE | 2020-04-15 10:13 | NUR ---
LEFT GROIN DRESSING C/D/I. NO S/S OF HEMATOMA NOTED. CALL LIGHT WITHIN REACH. VSS AT THIS TIME. FAMILY AT BEDSIDE.
--- NOTE | 2020-04-15 10:45 | NUR ---
PT RESTING COMFORTABLY. VSS. LEFT GROIN DRESSING C/D/I. NO S/S OF HEMATOMA NOTED. CALL LIGHT WITHIN REACH. NO NEEDS AT THIS TIME.
--- NOTE | 2020-04-15 11:15 | NUR ---
LEFT GROIN DRESSING C/D/I. NO S/S OF HEMATOMA NOTED. CALL LIGHT WITHIN REACH. VSS AT THIS TIME. FAMILY AT BEDSIDE.
--- NOTE | 2020-04-15 11:45 | NUR ---
PT RESTING COMFORTABLY. VSS. CALL LIGHT WITHIN REACH. LEFT GROIN DRESSING C/D/I. NO S/S OF HEMATOMA NOTED. PT DENIES NAUSEA.
--- NOTE | 2020-04-15 12:45 | NUR ---
LEFT GROIN DRESSING C/D/I. NO S/S OF HEMATOMA NOTED. HEAD OF BED ELEVATED APPROX 20 DEGREES. WENT TO GRAB PT A DRINK AND CAME BACK. PT PALE AND REPORTS "FEEL WEIRD". HR 54. BP 78/47. LEFT GROIN HAS NO CHANGES. PT PLACED BACK IN SUPINE POSITION. REMAINDER OF IVF OPENED UP FOR BOLUS AND PT PLACED IN [place] POSITION. COOL CLOTH TO HEAD. CALLED FOR ATROPINE IV MEDICATION IF NEEDED.
--- NOTE | 2020-04-15 12:48 | NUR ---
BP 77/50. HR 47. IVF INFUSING. PT ALERT AND ORIENTED. STILL SAYS HE "FEELS WEIRD". ANSWERING QUESTIONS APPROPRIATELY.
--- NOTE | 2020-04-15 12:49 | NUR ---
PT REPORTS FEELING BETTER. BP 84/60. HR 49. PLACED BACK IN SUPINE POSITION. AT BEDSIDE CLOSELY MONITORING.
--- NOTE | 2020-04-15 12:51 | NUR ---
BP 95/59. HR 52. PT FEELING BETTER. IVF STILL INFUSING.
--- NOTE | 2020-04-15 13:20 | NUR ---
PT FEELS MUCH BETTER. BP 105/75. HR 63. LEFT GROIN DRESSING C/D/I. NO S/S OF HEMATOMA NOTED. CALL LIGHT WITHIN REACH. HEAD OF BED AT 30 DEGREES. PT DENIES NAUSEA. ATE SANDWICH AND DRINK. DR. FRAGOSO UPDATED ON PT'S STATUS. 500cc OF NS BOLUS INFUSED TO RIGHT AC PIV. TOLERATED WELL. PT STILL OK TO BE DISCHARGED HOME IF HE DOES WELL SITTING UP AND GETTING DRESSED.
--- NOTE | 2020-04-15 13:23 | NUR ---
PT SITTING UP ON SIDE OF BED. HR 63. BP 122/86. LEFT GROIN DRESSING C/D/I. NO S/S OF HEMATOMA NOTED.
--- NOTE | 2020-04-15 13:36 | NUR ---
PIV D/C'D WITH CATH TIP INTACT. TOLERATED WELL. DISCUSSED DISCHARGE INSTRUCTIONS WITH PT AND PT'S FAMILY. THEY VOICED UNDERSTANDING. PT INSTRUCTED TO GET UP AND DRESSED AT THIS TIME. FAMILY AT BEDSIDE TO ASSIST.
--- NOTE | 2020-04-15 13:40 | NUR ---
LEFT GROIN DRESSING C/D/I. NO S/S OF HEMATOMA NOTED. PT AMBULATED TO RESTROOM. VOIDED WITHOUT DIFFICULTY. STEADY GAIT NOTED.
--- NOTE | 2020-04-15 13:45 | NUR ---
PT TAKEN DOWN TO VEHICLE BY WHEELCHAIR. NO S/S OF DISTRESS NOTED. ALL BELONGINGS AND PAPERWORK IN HAND.
== END 2020-04-15 13:45 | disposition home or self-care (01) ==
LOC: D.CATH 07:03
PROVIDERS: ATTEND Internal Medicine Cardiovascular Disease
DX: I25.10 Atherosclerotic heart disease of native coronary artery without angina pectoris (principal); I25.5 Ischemic cardiomyopathy; I10 Essential (primary) hypertension; K21.9 Gastro-esophageal reflux disease without esophagitis